=== PATIENT | male | born 1995 | race Caucasian/White ===

== ENCOUNTER → 2019-06-24 | Outpatient (CLI) | payer OTHER ==
[2019-06-27 00:07] LABS: F013-IGE PEANUT 0.57 kU/L (Class II); F014-IGE SOYBEAN <0.10 kU/L (Class 0); F024-IgE Shrimp 0.47 kU/L (Class I); F036-IGE COCONUT 1.42 kU/L (Class III); F338-IgE Oyster <0.10 kU/L (Class 0); F338-IgE Scallop 0.29 kU/L (Class 0/I)
== END ==
LOC: M SMT 10:59
PROVIDERS: ATTEND Allergy & Immunology Allergy
DX: T78.01XA Anaphylactic reaction due to peanuts, initial encounter (principal)